=== PATIENT | female | born 1965 | race African-American/Black ===

== ENCOUNTER 2016-11-01 11:20 | Inpatient (IN) | payer MEDICARE, OTHER ==
[~2016-11-01] VITALS: Ht 157.5 cm; Wt 99.8 kg
[~2016-11-01 11:20] MED LIST: ABILIFY15 MG ORAL; ACETAZOLAMIDE250 MG ORAL; ALBUTEROL2.5 MG/3 M HHN; AMLODIPINE BESYL5 MG ORAL; ASPIRIN81 MG ORAL; ATORVASTATIN CA20 MG ORAL; BENADRYL25 MG ORAL; BISACODYL10 MG/30 M RC; DEPAKOTE ER500 MG PO; DEPAKOTE250 MG PO; GEODON40 MG ORAL; GLUCOPHAGE500 MG ORAL; HYDRALAZINE HCL10 MG ORAL; HYDRALAZINE HCL25 M1 PO; JANUVIA25 MG ORAL; LACTULOSE10 GM/153 PO; LASIX20 MG ORAL; LEVEMIR FL100 UNIT/2 SQ; MICONAZOLE NITRATE 2%; MIRALAX17 G2 ORAL; NOVOLOG100 UNITS1 SQ; OLANZAPINE10 MG ORAL; POTASSIUM CHLO10 MEQ ORAL; PREDNISONE20 MG ORAL; RANITIDINE HCL150 MG ORAL; RISPERDAL37.5 MG/2 IM; VITAMIN C500 M1 PO; ZESTRIL10 MG ORAL
[2016-11-01 11:44] VITALS: BP 131/78
[2016-11-01] MEDS ORDERED: PEPCID20 MG ORAL (12:03)
--- NOTE | 2016-11-01 14:27 | Emergency Room Report ---
History of Present Illness General Chief Complaint: General Complaint Source: PMD Present Illness HPI [id number] here with uncertain chief complaint. PMD Lelo endorsed ?UTI/sepsis. 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 Patient endorses nausea and diarrhea to me. She is ambulating around the ED eating sandwiches, speaking loudly, interacting with staff PMHx obtained from review of EMR Allergies: Coded Allergies: No Known Allergies (Unverified , 08/09/12) Patient History Past Medical History: DM, HTN, COPD, psych hx, other - Mentally delayed Past Surgical History: none Pertinent Family History: none Social History: Denies: alcohol use, drug use, smoking Now: No Immunizations: UTD Reviewed Nursing Documentation: PMH: Agreed, PSxH: Agreed Nursing Documentation-PMH Hx Cardiac Problems: Yes Hx Hypertension: Yes Hx COPD: Yes Hx Diabetes: Yes Hx Cancer: Yes - Colon CA Hx Gastrointestinal Problems: No Hx Neurological Problems: Yes - SCHIZOPHRENIA, BIPOLAR, Hx Seizures: Yes Hx Dizziness: Yes Review of Systems All Other Systems: limited - Limited d/t mental delay Physical Exam Vital Signs Date Time Temp Pulse Resp B/P Pulse Ox O2 Delivery O2 Flow Rate FiO2 11/01/16 11:29 98.1 96 20 131/78 100 Room Air Sp02 EP Interpretation: reviewed, normal General Appearance: normal inspection, well appearing, no apparent distress, alert, non-toxic, obese Head: normocephalic Eyes: bilateral eye EOMI, bilateral eye PERRL ENT: normal ENT inspection, hearing grossly normal, normal voice Neck: normal inspection, full range of motion, supple, no bony tend Respiratory: normal inspection, lungs clear, normal breath sounds, no respiratory distress, no retraction, no wheezing Cardiovascular #1: regular rate, rhythm, no edema Gastrointestinal: normal inspection, normal bowel sounds, non tender, soft, no guarding, no hernia Genitourinary: no CVA tenderness Musculoskeletal: normal inspection, back normal, normal range of motion, Kathy' s Sign negative Neurologic: normal inspection, alert, oriented x3, responsive, advertising inserter III-XII nml as tested, motor strength/tone normal, speech normal Psychiatric: normal inspection, judgement/insight normal, mood/affect normal Skin: normal inspection, normal color, no rash Lymphatic: normal inspection Medical Decision Making Diagnostic Impression: Primary Impression: Altered mental status Qualified Codes: R41.82 - Altered mental status, unspecified ER Course Altered mental status VSS. Afebrile. CXR no PNA Labs, UA are pending at time of endorsement to Dr Lind for 235pm EKG Diagnostic Results Rate: normal Rhythm: NSR ST Segments: no acute changes Rhythm Strip Diag. Results EP Interpretation: yes Rate: 94 Rhythm: NSR, no PVC's, no ectopy Chest X-Ray Diagnostic Results Chest X-Ray Diagnostic Results : Chest X-Ray Ordered: Yes # of Views/Limited/Complete: 1 View Indication: Other - Admit EP Interpretation: Yes Interpretation: no consolidation, no effusion, no pneumothorax, other - cardiomegaly Impression: No acute disease Interpreting ER Provider: Electronically signed by DR Mason Last Vital Signs Date Time Temp Pulse Resp B/P Pulse Ox O2 Delivery O2 Flow Rate FiO2 11/01/16 12:49 98.1 81 20 131/78 100 Room Air Status: improved Disposition: HOME, SELF-CARE Condition: Improved Scripts Famotidine (PEPCID) 20 Mg Tablet 20 MG ORAL DAILY for stomach pain, diarrhea for 7 Days, #14 TAB 0 Refills Prov: ROSENDA MASON M.D. 11/01/16 Referrals: IRAIS LIND (PCP) Patient Instructions: Chronic Diarrhea Additional Instructions: - Take pepcid once daily for 1 week ROSENDA MASON M.D. Nov 01, 2016 14:27
[2016-11-01] MEDS ORDERED: LORazepam Inj 2mg/ml 1ml IV PRN (14:30)
[2016-11-01] MEDS ORDERED: Miralax 17gm pkt ORAL PRN (14:30)
[2016-11-01] MEDS ORDERED: Morphine Sulfate 2mg/ml Inj IVP PRN (14:30)
[2016-11-01] MEDS ORDERED: Zolpidem 5mg tab ORAL PRN (14:30)
[2016-11-01] MEDS ORDERED: Mylanta II UD 30ml ORAL PRN (14:30)
[2016-11-01 14:38] VITALS: BP 128/76
--- NOTE | 2016-11-01 15:44 | History and Physical ---
History of Present Illness General Date patient seen: Nov 01, 2016 Reason for Hospitalization: General Complaint Present Illness HPI 51 year old female with psych disorder, hard of hearing, mentally disabled, with morbid obesity and DM brought in with cc of diarrhea, dysuria, and abdominal cramps. Allergies: Coded Allergies: No Known Allergies (Unverified , 08/09/12) Medication History Scheduled Amlodipine Besylate* (Amlodipine Besylate*), 5 MG ORAL DAILY, (Reported) Aripiprazole* (Abilify*), 30 MG ORAL DAILY, (Reported) Aspirin* (Aspirin*), 162 MG ORAL DAILY Atorvastatin Calcium* (Atorvastatin Calcium*), 20 MG ORAL BEDTIME, (Reported) Divalproex Sodium* (Depakote Er*), 500 MG PO QHS, (Reported) Divalproex Sodium* (Depakote*), 250 MG PO BEDTIME, (Reported) Famotidine (Pepcid), 20 MG ORAL DAILY Furosemide (Furosemide), 20 MG ORAL DAILY, (Reported) Hydralazine Hcl* (Hydralazine Hcl*), 10 MG ORAL TID, (Reported) Insulin Aspart (Novolog Flexpen), 20 SQ THREE TIMES A DAY, (Reported) Lisinopril* (Zestril*), 10 MG ORAL BID, (Reported) Metformin Hcl* (Glucophage*), 500 MG ORAL BID, (Reported) Olanzapine (Olanzapine), 10 MG ORAL THREE TIMES A DAY, (Reported) Potassium Chloride* (K-Dur*), 10 MEQ ORAL DAILY, (Reported) Risperidone Microspheres (Risperdal Consta), 50 MG IM [id number], (Reported) Sitagliptin* (Januvia*), 50 MG ORAL DAILY, (Reported) Ziprasidone Hcl* (Geodon*), 80 MG ORAL BID, (Reported) Scheduled PRN Polyethylene Glycol 3350* (Miralax*), 17 GM ORAL DAILYPRN PRN for Constipation Miscellaneous Medications Insulin Detemir (Levemir Flextouch), 100 UNIT SQ, (Reported) [miconazole nit 2%], (Reported) Patient History Healthcare decision maker Resuscitation status Advanced Directive on File Past Medical/Surgical History Past Medical/Surgical History: (1) Dysuria (2) Psychosis (3) Mentally disabled (4) Diarrhea Review of Systems All Other Systems: negative except mentioned in HPI Physical Exam General Appearance: WD/WN Lines, tubes and drains: peripheral HEENT: normocephalic, atraumatic Neck: non-tender, normal alignment Respiratory/Chest: chest wall non-tender, lungs clear Breasts: no masses Cardiovascular/Chest: normal peripheral pulses Abdomen: normal bowel sounds, non tender Genitourinary/Rectal: normal genital exam Extremities: normal range of motion Skin Exam: normal pigmentation Last 24 Hour Vital Signs Date Time Temp Pulse Resp B/P Pulse Ox O2 Delivery O2 Flow Rate FiO2 11/01/16 15:20 98.1 78 18 128/76 100 Room Air 11/01/16 14:38 98.1 78 18 128/76 100 Room Air 11/01/16 12:49 98.1 81 20 131/78 100 Room Air 11/01/16 11:44 98.1 81 20 131/78 100 Room Air 11/01/16 11:29 98.1 96 20 131/78 100 Room Air Height (Feet): 5 Height (Inches): 3.00 Weight (Pounds): 220 Medications Current Medications Medications (Trade) Dose Ordered Sig/Madhu Route PRN Reason Start Time Stop Time Status Last Admin Dose Admin Acetaminophen (Tylenol) 650 mg Q4H PRN ORAL fever 11/01/16 14:30 12/01/16 14:29 Al Hydroxide/Mg Hydroxide (Mylanta II) 30 ml Q6H PRN ORAL dyspepsia 11/01/16 14:30 12/01/16 14:29 Amlodipine Besylate (Norvasc) 5 mg DAILY ORAL 11/02/16 09:00 12/02/16 08:59 Aripiprazole (Abilify) 30 mg DAILY ORAL 11/02/16 09:00 12/02/16 08:59 Aspirin (ASA) 162 mg DAILY ORAL 11/02/16 09:00 12/02/16 08:59 Dextrose (Dextrose 50%) STAT PRN IV Hypoglycemia 11/01/16 14:30 12/01/16 14:29 Divalproex Sodium (Depakote ER) 500 mg QHS ORAL 11/01/16 21:00 12/01/16 20:59 Heparin Sodium (Porcine) (Heparin 5000 units/ml) 5,000 units EVERY 12 HOURS SUBQ 11/01/16 21:00 12/01/16 20:59 Hydralazine HCl (Apresoline) 10 mg TID ORAL 11/01/16 18:00 12/01/16 17:59 Insulin Aspart (NovoLOG) BEFORE MEALS AND HS SUBQ 11/01/16 16:30 12/01/16 16:29 Lisinopril (Zestril) 10 mg BID ORAL 11/01/16 18:00 12/01/16 17:59 Lorazepam (Ativan 2mg/ml 1ml) 0.5 mg Q4H PRN IV For Anxiety 11/01/16 14:30 11/08/16 14:29 Morphine Sulfate (Morphine Sulfate) 1 mg Q4H PRN IVP For Pain 11/01/16 14:30 11/08/16 14:29 Ondansetron HCl (Zofran) 4 mg Q6H PRN IVP Nausea & Vomiting 11/01/16 14:30 12/01/16 14:29 Polyethylene Glycol (Miralax) 17 gm HSPRN PRN ORAL Constipation 11/01/16 14:30 12/01/16 14:29 Sitagliptin Phosphate (Januvia) 50 mg DAILY ORAL 11/02/16 09:00 12/02/16 08:59 Zolpidem Tartrate (Ambien) 5 mg HSPRN PRN ORAL Insomnia 11/01/16 14:30 12/01/16 14:29 Assessment/Plan Problem List: (1) Diarrhea ICD Codes: R19.7 - Diarrhea, unspecified SNOMED: 20522161 (2) Dysuria ICD Codes: R30.0 - Dysuria SNOMED: 26676998 (3) Psychosis ICD Codes: F29 - Unspecified psychosis not due to a substance or known physiological condition SNOMED: 98569201 (4) Diabetes ICD Codes: E11.9 - Type 2 diabetes mellitus without complications SNOMED: 86469010 (5) Mentally disabled ICD Codes: F79 - Unspecified intellectual disabilities SNOMED: 01234628, 197706306, 273442601 Assessment/Plan stool for ova/ parasites GI evaluation sliding scale check labs psych with IRAIS Ron Nov 01, 2016 15:44
[2016-11-01 15:49] VITALS: BP 149/92
[2016-11-01 16:00] VITALS: BP 149/92
--- NOTE | 2016-11-01 16:21 | Diagnostic Imaging Report ---
Indication: SOB chest pain Technique: One view of the chest Comparison: 10/08/2015 Findings: Body habitus limits evaluation. Equivocal mild congestive changes are again demonstrated, perhaps slightly less severe than on the prior study. The heart is borderline enlarged. Impression: Equivocal mild interstitial congestion. Correlate clinically. Borderline cardiomegaly
[2016-11-01 16:40] LABS: BASOPHILS % (AUTO) 1.2 % (0.0-2.0); EOSINOPHILS % (AUTO) 0.3 % (0.0-3.0); LYMPHOCYTES % (AUTO) 16.9 % (20.0-45.0); MEAN CORPUSCULAR HEMOGLOBIN 31.1 PG (27.0-31.0); MEAN CORPUSCULAR HGB CONC 34.3 G/DL (32.0-36.0); MEAN CORPUSCULAR VOLUME 91 FL (80-99); MEAN PLATELET VOLUME 9.8 FL (6.5-10.1); MONOCYTES % (AUTO) 10.3 % (1.0-10.0); NEUTROPHILS % (AUTO) 71.2 % (45.0-75.0); PLATELET COUNT 137 K/UL (150-450); RED BLOOD COUNT 4.24 M/UL (4.20-5.40); WHITE BLOOD COUNT 9.4 K/UL (4.8-10.8)
[2016-11-01 16:57] LABS: ALANINE AMINOTRANSFERASE 12 U/L (3-33); ALBUMIN/GLOBULIN RATIO 1.3 (1.0-2.7); ANION GAP 12 (5-15); ASPARTATE AMINO TRANSFERASE 17 U/L (5-40); CALCIUM 9.6 mg/dL (8.6-10.2); CARBON DIOXIDE 29 mEQ/L (20-30); CHLORIDE 100 mEQ/L (98-107); CREATININE 1.2 mg/dL (0.5-0.9); HEMOLYSIS 8; POTASSIUM 3.8 mEQ/L (3.4-4.9); SODIUM 141 mEQ/L (135-145); TOTAL PROTEIN 6.4 g/dL (6.6-8.7); TROPONIN I < 0.30 ng/mL (<=0.30)
[2016-11-01 17:15] LABS: REFLEX LACTIC ACID YES OR NO YES
[2016-11-01] MEDS: Lisinopril 10mg tab ORAL SCH (17:45)
[2016-11-01] MEDS: HydrALAZINE 10mg Tab ORAL SCH (17:46)
[2016-11-01] MEDS: NovoLOG Insulin Flexpen SUBQ SCH ×2 (17:48→21:01)
[2016-11-01 19:03] LABS: APPEARANCE,URINE CLEAR; KETONES,URINE NEGATIVE (NEGATIVE); LEUKOCYTE ESTERASE ,URINE 2+ (NEGATIVE); NITRITE,URINE NEGATIVE (NEGATIVE); PH,URINE 6.5 (4.5-8.0); PROTEIN,URINE 4+ (NEGATIVE); UROBILINOGEN,URINE NORMAL MG/DL (0.0-1.0)
[2016-11-01] MEDS ORDERED: BACLOFEN10 MG ORAL (19:12)
[2016-11-01] MEDS ORDERED: TEMAZEPAM15 MG ORAL (19:12)
[2016-11-01] MEDS ORDERED: TOLTERODINE TART2 M1 PO (19:12)
[2016-11-01] MEDS ORDERED: RISPERIDONE3 MG ORAL (19:12)
[2016-11-01] MEDS ORDERED: KLONOPIN1 MG ORAL (19:12)
[2016-11-01] MEDS ORDERED: JANUVIA25 MG ORAL (19:12)
[2016-11-01] MEDS ORDERED: ATIVAN2 MG ORAL (19:12)
[2016-11-01] MEDS ORDERED: COLACE100 MG ORAL (19:12)
[2016-11-01] MEDS ORDERED: OMEPRAZOLE20 M2 ORAL (19:12)
[2016-11-01] MEDS ORDERED: ACETAMINOPHEN500 M7 PO (19:12)
[2016-11-01 19:18] LABS: WBC,URINE TNTC /HPF (0 - 2)
[2016-11-01 19:19] LABS: SQUAMOUS EPITHELIAL CELL,UR OCCASIONAL /LPF (NONE/OCC)
[2016-11-01] MEDS ORDERED: LEVEMIR FL100 UNIT/1 SUBQ ×2 (19:48)
[2016-11-01 19:56] VITALS: BP 155/59
--- NOTE | 2016-11-01 20:04 | Consultation ---
Consult Note Consult Note ID Dic# [id number] LEXI JARRETT M.D. Nov 01, 2016 20:04
[2016-11-01] MEDS: Heparin 5000 units/ml inj SUBQ SCH (20:59)
[2016-11-01] MEDS ORDERED: Depakote ER 500mg tab ORAL SCH (21:00)
[2016-11-01] MEDS: Atorvastatin 20mg tab ORAL SCH (21:22)
[2016-11-01] MEDS: cefTRIAXone 1 GM in D5W 55 ML IVPB SCH (21:24)
[2016-11-01] MEDS: Levemir Flexpen SUBQ SCH (21:26)
[2016-11-01] MEDS ORDERED: LORazepam 1mg tab ORAL PRN (22:00)
--- NOTE | 2016-11-01 22:25 | Consultation ---
History of Present Illness General Chief Complaint: General Complaint Present Illness HPI 51 year old female with hx schizoaffective d/o admitted for uti the pt has DD and hearing loss. recent surgery and hearing is lost. the pt is loud and anxious. perseverated and endorses delusions. Allergies: Coded Allergies: No Known Allergies (Unverified , 08/09/12) Medication History Scheduled Amlodipine Besylate* (Amlodipine Besylate*), 5 MG ORAL DAILY, (Reported) Aripiprazole* (Abilify*), 30 MG ORAL DAILY, (Reported) Aspirin* (Aspirin*), 162 MG ORAL DAILY Atorvastatin Calcium* (Atorvastatin Calcium*), 20 MG ORAL BEDTIME, (Reported) Baclofen* (Baclofen*), 10 MG ORAL THREE TIMES A DAY, (Reported) Clonazepam* (Klonopin*), 1 MG ORAL BEDTIME, (Reported) Divalproex Sodium* (Depakote Er*), 500 MG PO QHS, (Reported) Divalproex Sodium* (Depakote*), 250 MG PO BEDTIME, (Reported) Docusate Sodium* (Colace*), 100 MG ORAL DAILY, (Reported) Famotidine (Pepcid), 20 MG ORAL DAILY Furosemide (Furosemide), 20 MG ORAL DAILY, (Reported) Hydralazine Hcl* (Hydralazine Hcl*), 10 MG ORAL TID, (Reported) Insulin Aspart (Novolog Flexpen), 20 SQ THREE TIMES A DAY, (Reported) Insulin Detemir (Levemir Flexpen), 30 SUBQ DAILY, (Reported) Insulin Detemir (Levemir Flexpen), 20 SUBQ BEDTIME, (Reported) Lisinopril* (Zestril*), 10 MG ORAL BID, (Reported) Metformin Hcl* (Glucophage*), 500 MG ORAL BID, (Reported) Olanzapine (Olanzapine), 10 MG ORAL THREE TIMES A DAY, (Reported) Omeprazole (Omeprazole), 20 MG ORAL DAILY, (Reported) Potassium Chloride* (K-Dur*), 10 MEQ ORAL DAILY, (Reported) Risperidone (Risperidone), 3 MG ORAL BEDTIME, (Reported) Risperidone Microspheres (Risperdal Consta), 50 MG IM [id number], (Reported) Sitagliptin* (Januvia*), 50 MG ORAL DAILY, (Reported) Sitagliptin* (Januvia*), 100 MG ORAL DAILY, (Reported) Temazepam (Temazepam*), 15 MG ORAL BEDTIME, (Reported) Ziprasidone Hcl* (Geodon*), 80 MG ORAL BID, (Reported) Scheduled PRN Acetaminophen (Acetaminophen), 325 MG PO EVERY 8 HOURS PRN for Mild Pain/Temp > 100.5, (Reported) Lorazepam* (Ativan*), 2 MG ORAL EVERY 6 HOURS PRN for Agitation, (Reported) Polyethylene Glycol 3350* (Miralax*), 17 GM ORAL DAILYPRN PRN for Constipation Miscellaneous Medications Insulin Detemir (Levemir Flextouch), 100 UNIT SQ, (Reported) Tolterodine Tartrate (Tolterodine Tartrate ER), 2 MG PO, (Reported) [miconazole nit 2%], (Reported) Patient History History Provided By: Patient, Medical Record, PMD Healthcare decision maker Resuscitation status Full Code Advanced Directive on File No Past Medical/Surgical History Past Medical/Surgical History: (1) Dizziness (2) Chest pain of uncertain etiology (3) ACS (acute coronary syndrome) (4) Altered mental status (5) Diarrhea (6) Dysuria (7) Psychosis (8) Mentally disabled (9) Diabetes Review of Systems Psychiatric: Reports: anxiety, depressed feelings, emotional problems, prior hx Physical Exam General Appearance: alert, mild distress, agitated, obese Neurologic: alert, responsive, depressed affect Last 24 Hour Vital Signs Date Time Temp Pulse Resp B/P Pulse Ox O2 Delivery O2 Flow Rate FiO2 11/01/16 19:56 97.7 99 20 155/59 95 Room Air 11/01/16 19:55 97.7 11/01/16 17:46 185/96 11/01/16 17:45 185/96 11/01/16 16:00 97.3 102 20 149/92 92 Room Air 11/01/16 15:49 97.3 102 20 149/92 92 Room Air 11/01/16 15:20 98.1 78 18 128/76 100 Room Air 11/01/16 14:38 98.1 78 18 128/76 100 Room Air 11/01/16 12:49 98.1 81 20 131/78 100 Room Air 11/01/16 11:44 98.1 81 20 131/78 100 Room Air 11/01/16 11:29 98.1 96 20 131/78 100 Room Air Laboratory Tests Test 11/01/16 16:11 11/01/16 16:15 11/01/16 18:24 White Blood Count 9.4 K/UL (4.8-10.8) Pending Red Blood Count 4.24 M/UL (4.20-5.40) Pending Hemoglobin 13.2 G/DL (12.0-16.0) Pending Hematocrit 38.4 % (37.0-47.0) Pending Mean Corpuscular Volume 91 FL (80-99) Pending Mean Corpuscular Hemoglobin 31.1 PG (27.0-31.0) H Pending Mean Corpuscular Hemoglobin Concent 34.3 G/DL (32.0-36.0) Pending Red Cell Distribution Width 12.0 % (11.6-14.8) Pending Platelet Count 137 K/UL (150-450) L Pending Mean Platelet Volume 9.8 FL (6.5-10.1) Pending Neutrophils (%) (Auto) 71.2 % (45.0-75.0) Pending Lymphocytes (%) (Auto) 16.9 % (20.0-45.0) L Pending Monocytes (%) (Auto) 10.3 % (1.0-10.0) H Pending Eosinophils (%) (Auto) 0.3 % (0.0-3.0) Pending Basophils (%) (Auto) 1.2 % (0.0-2.0) Pending Sodium Level 141 mEQ/L (135-145) Potassium Level 3.8 mEQ/L (3.4-4.9) Chloride Level 100 mEQ/L (98-107) Carbon Dioxide Level 29 mEQ/L (20-30) Anion Gap 12 (5-15) Blood Urea Nitrogen 19 mg/dL (7-23) Creatinine 1.2 mg/dL (0.5-0.9) H Estimat Glomerular Filtration Rate 57.0 mL/min (>60) Glucose Level 369 mg/dL (74-106) H Lactic Acid Level 2.10 mmol/L (0.66-2.22) Calcium Level 9.6 mg/dL (8.6-10.2) Total Bilirubin 0.3 mg/dL (0.0-1.2) Aspartate Amino Transf (AST/SGOT) 17 U/L (5-40) Alanine Aminotransferase (ALT/SGPT) 12 U/L (3-33) Alkaline Phosphatase 65 U/L (35-104) Total Creatine Kinase 673 U/L (26-140) H Troponin I < 0.30 ng/mL (<=0.30) Total Protein 6.4 g/dL (6.6-8.7) L Albumin 3.7 g/dL (3.5-5.2) Globulin 2.7 g/dL Albumin/Globulin Ratio 1.3 (1.0-2.7) Urine Color Pale yellow Urine Appearance Clear Urine pH 6.5 (4.5-8.0) Urine Specific [place] 1.010 (1.005-1.035) Urine Protein 4+ (NEGATIVE) H Urine Glucose (UA) 4+ (NEGATIVE) H Urine Ketones Negative (NEGATIVE) Urine Occult Blood 5+ (NEGATIVE) H Urine Nitrite Negative (NEGATIVE) Urine Bilirubin Negative (NEGATIVE) Urine Urobilinogen Normal MG/DL (0.0-1.0) Urine Leukocyte Esterase 2+ (NEGATIVE) H Urine RBC 5-10 /HPF (0 - 2) H Urine WBC Tntc /HPF (0 - 2) H Urine Squamous Epithelial Cells Occasional /LPF Urine Bacteria None /HPF (NONE) Height (Feet): 5 Height (Inches): 2.00 Weight (Pounds): 220 Medications Current Medications Medications (Trade) Dose Ordered Sig/Madhu Route PRN Reason Start Time Stop Time Status Last Admin Dose Admin Acetaminophen (Tylenol) 650 mg Q4H PRN ORAL fever 11/01/16 14:30 12/01/16 14:29 Al Hydroxide/Mg Hydroxide (Mylanta II) 30 ml Q6H PRN ORAL dyspepsia 11/01/16 14:30 12/01/16 14:29 Amlodipine Besylate (Norvasc) 5 mg DAILY ORAL 11/02/16 09:00 12/02/16 08:59 Aspirin (ASA) 162 mg DAILY ORAL 11/02/16 09:00 12/02/16 08:59 Atorvastatin Calcium (Lipitor) 20 mg BEDTIME ORAL 11/01/16 21:00 12/01/16 20:59 11/01/16 21:22 Baclofen (Lioresal) 10 mg THREE TIMES A DAY ORAL 11/02/16 09:00 12/02/16 08:59 Ceftriaxone Sodium/Dextrose (Rocephin/D5W) 55 ml @ 110 mls/hr Q24H IVPB 11/01/16 20:00 11/08/16 19:59 11/01/16 21:24 Clonazepam (KlonoPIN) 1 mg HSPRN PRN ORAL anxiety at bedtime 11/02/16 20:00 11/09/16 19:59 Dextrose (Dextrose 50%) STAT PRN IV Hypoglycemia 11/01/16 14:30 12/01/16 14:29 Divalproex Sodium (Depakote ER) 250 mg QHS ORAL 11/02/16 21:00 12/02/16 20:59 Divalproex Sodium (Depakote ER) 1,000 mg QHS ORAL 11/02/16 21:00 12/02/16 20:59 Docusate Sodium (Colace) 100 mg DAILY ORAL 11/02/16 09:00 12/02/16 08:59 Heparin Sodium (Porcine) 5000 units 5,000 units EVERY 12 HOURS SUBQ 11/01/16 21:00 12/01/16 20:59 11/01/16 20:59 Hydralazine HCl (Apresoline) 10 mg TID ORAL 11/01/16 18:00 12/01/16 17:59 11/01/16 17:46 Insulin Aspart (NovoLOG) BEFORE MEALS AND HS SUBQ 11/01/16 16:30 12/01/16 16:29 11/01/16 21:01 Insulin Detemir (Levemir) 20 units BEDTIME SUBQ 11/01/16 21:00 12/01/16 20:59 11/01/16 21:26 Insulin Detemir 30 units 30 units DAILY SUBQ 11/02/16 09:00 12/02/16 08:59 Lisinopril (Zestril) 10 mg BID ORAL 11/01/16 18:00 12/01/16 17:59 11/01/16 17:45 Lorazepam (Ativan) 2 mg Q6H PRN ORAL For Anxiety 11/01/16 22:00 11/08/16 21:59 Metronidazole (Flagyl) 100 ml @ 100 mls/hr Q8HR IVPB 11/01/16 22:00 11/08/16 21:59 Morphine Sulfate (Morphine Sulfate) 1 mg Q4H PRN IVP For Pain 11/01/16 14:30 11/08/16 14:29 Ondansetron HCl (Zofran) 4 mg Q6H PRN IVP Nausea & Vomiting 11/01/16 14:30 12/01/16 14:29 Pantoprazole (Protonix) 40 mg DAILY ORAL 11/01/16 21:00 12/01/16 20:59 11/01/16 21:22 Polyethylene Glycol (Miralax) 17 gm HSPRN PRN ORAL Constipation 11/01/16 14:30 12/01/16 14:29 Risperidone (RisperDAL) 6 mg QHS ORAL 11/02/16 21:00 12/02/16 20:59 Sitagliptin Phosphate (Januvia) 50 mg DAILY ORAL 11/02/16 09:00 12/02/16 08:59 Temazepam (Restoril) 15 mg HSPRN PRN ORAL Insomnia 11/01/16 21:00 11/08/16 20:59 Tolterodine Tartrate (Detrol) 1 mg BID ORAL 11/02/16 09:00 12/02/16 08:59 Assessment/Plan Status: stable Assessment/Plan Depakote er 1250mg qhs risperdal mg qhs klonopin 1mg qhs prn ativan prn Rudy Quiroz M.D. Nov 01, 2016 22:25
[2016-11-02] VITALS: BP 145/87
[2016-11-02] MEDS: metroNIDAZOLE 500mg 100 ML IVPB SCH ×4 (02:18→21:54)
[2016-11-02 04:00] VITALS: BP 152/88
[2016-11-02] MEDS: NovoLOG Insulin Flexpen SUBQ SCH ×6 (06:39→21:00)
--- NOTE | 2016-11-02 07:15 | Consultation ---
DATE OF CONSULTATION: INFECTIOUS DISEASE CONSULTATION CONSULTING PHYSICIAN: Navid Bobby M.D. REFERRING PHYSICIAN: Rush Lind M.D. REASON FOR CONSULTATION: Evaluation of the patient for possible sepsis, urinary tract infection, antibiotic management. HISTORY OF PRESENT ILLNESS: The patient is a 51-year-old female with multiple medical problems as listed below who was admitted to this medical center with and also the patient has a history of having dysuria, abdominal cramp and diarrhea. Infectious Disease consultation has been requested for evaluation of the patient's antibiotic management. The patient is a very poor historian and much of the information is gathered through chart and speaking to staff. PAST MEDICAL HISTORY: 1. History of psychosis. 2. History of mentally challenged. 3. History of cochlear implant. 4. History of seizure disorder. 5. Hypertension. 6. COPD. 7. Diabetes. MEDICATIONS: IV Rocephin. ALLERGIES: No known drug allergies. SOCIAL HISTORY: No history of alcohol or drug abuse. FAMILY HISTORY: Noncontributory. REVIEW OF SYSTEMS: Unobtainable. The patient is a very poor historian. PHYSICAL EXAMINATION: VITAL SIGNS: Temperature 97.7 degrees, blood pressure 155/59, pulse 56, and respiratory rate 18. HEENT: No pale conjunctivae. No icterus. NECK: No lymphadenopathy. CHEST: Clear. HEART: S1 and S2. ABDOMEN: Obese and nontender. EXTREMITIES: No cyanosis. LABORATORY AND DIAGNOSTIC DATA: White blood cell 9.4, hemoglobin 13.2 and platelets 137,000. Urinalysis, too numerous to count white blood cells, BUN 19 and creatinine 1.2. ALT, AST and alkaline phosphatase is unremarkable. Chest x-ray, mild interstitial congestion. ASSESSMENT: The patient is a 51-year-old female with: 1. Possible sepsis. 2. Probable urinary tract infection/pyuria. 3. Diarrhea, rule out Clostridium difficile, enteric pathogens. PLAN: 1. We will start the patient on IV Rocephin and Flagyl. 2. Monitor CBC. 3. Monitor BMP. 4. Monitor cultures, blood/stool/urine culture. 5. Stool for C. difficile. 6. Based on the patient's clinical course and labs, we will do further recommendations. Thank you, Dr. Lind, for allowing me to participate in the care of this patient. I will follow the patient with you during this hospitalization. Navid Bobby M.D. DR: JYOTSNA JOB#: [id number] CC:
--- NOTE | 2016-11-02 07:45 | Consultation ---
DATE OF CONSULTATION: 11/02/2016 ENDOCRINE CONSULTATION CONSULTING PHYSICIAN: Darshan Rodriguez M.D. REFERRING PHYSICIAN: Rush Lind M.D. REASON FOR CONSULTATION: Diabetes management. HISTORY OF PRESENT ILLNESS: The patient is a 51-year-old female with history of psychiatric disorder and had been feeling mentally disabled with morbid obesity, brought into the emergency department with multiple complaints. Her blood sugar is elevated. The patient is on high dose insulin as an outpatient. Therefore Endocrinology was consulted. PAST MEDICAL HISTORY: 1. Diabetes. 2. Obesity. 3. Hypertension. 4. Chronic obstructive pulmonary disease. 5. Psychiatric illness. PAST SURGICAL HISTORY: None. MEDICATIONS: Reviewed and reconciled. SOCIAL HISTORY: No smoking, alcohol, or drug use. FAMILY HISTORY: Noncontributory. REVIEW OF SYSTEMS: Difficult to obtain. PHYSICAL EXAMINATION: VITAL SIGNS: Blood pressure is 152/80, pulse of 100, temperature 99, and respiratory rate of 20. HEENT: Pupils are equal and reactive to light. NECK: No JVD. HEART: Regular. LUNGS: Clear. ABDOMEN: Positive bowel sounds. Soft. EXTREMITIES: Positive for edema. LABORATORY VALUES: Sodium 141, potassium 3.8, chloride 100, bicarb 29, BUN 19, creatinine 1.2, and glucose of 369. WBC 9, hemoglobin 13, hematocrit 38, and platelets of 137,000. DIAGNOSES: 1. Generalized weakness. 2. Abdominal pain. 3. Diabetes, out of control. PLAN: 1. Continue Levemir 30 units in the morning and 20 units in the evening. 2. Add NovoLog 9 units before meals t.i.d. 3. Continue Januvia 50 mg daily. 4. Add metformin 500 mg t.i.d. 5. Continue NovoLog sliding scale. 6. Further adjustment according to her blood glucose values. I will follow the patient during the hospital stay. Thank you, Dr. Lind, for the courtesy of this consultation. Darshan Rodriguez M.D. DR: TAMRA/GINNY JOB#: [id number] CC: [email or web address]
[2016-11-02 08:00] VITALS: BP 147/82
[2016-11-02 08:01] LABS: ALANINE AMINOTRANSFERASE 11 U/L (3-33); ALBUMIN/GLOBULIN RATIO 1.1 (1.0-2.7); ANION GAP 11 (5-15); ASPARTATE AMINO TRANSFERASE 13 U/L (5-40); CALCIUM 9.5 mg/dL (8.6-10.2); CARBON DIOXIDE 28 mEQ/L (20-30); CHLORIDE 107 mEQ/L (98-107); CHOLESTEROL 184 mg/dL (< 200); CHOLESTEROL/HDL RATIO 5.3 (3.3-4.4); CREATININE 0.9 mg/dL (0.5-0.9); GLOMERULAR FILTRATION RATE > 60 mL/min (>60); HEMOLYSIS 2; LDL CHOLESTEROL (CALC.) 125 mg/dL (60-99); POTASSIUM 3.8 mEQ/L (3.4-4.9); SODIUM 146 mEQ/L (135-145); TOTAL PROTEIN 6.8 g/dL (6.6-8.7)
[2016-11-02] MEDS ORDERED: Levemir Flexpen SUBQ SCH (09:00)
[2016-11-02] MEDS: Heparin 5000 units/ml inj SUBQ SCH ×2 (09:00→21:00)
[2016-11-02] MEDS ORDERED: Docusate 100mg cap ORAL SCH (09:00)
[2016-11-02] MEDS: Aspirin Baby 81mg ORAL SCH (09:31)
[2016-11-02] MEDS: sitaGLIPtin 50mg tab ORAL SCH (09:31)
[2016-11-02] MEDS: Lisinopril 10mg tab ORAL SCH ×2 (09:31→17:34)
[2016-11-02] MEDS: HydrALAZINE 10mg Tab ORAL SCH ×3 (09:32→17:35)
[2016-11-02] MEDS: Tolterodine 2mg tab ORAL SCH ×2 (09:32→17:38)
--- NOTE | 2016-11-02 10:06 | Infectious Diseases Prog Note ---
Assessment/Plan Assessment/Plan ASSESSMENT: The patient is a 51-year-old female with: ? sepsis Probable urinary tract infection/pyuria Diarrhea, ? no BM in hospital may need to ro rule out Clostridium difficile, enteric pathogens History of psychosis History of mentally challenged History of cochlear implant History of seizure disorder Hypertension COPD Diabetes PLAN: patient on IV Rocephin and Flagyl d# 2 Monitor CBC. Monitor BMP. Monitor cultures, blood/stool/urine culture Stool for C. difficile Subjective Constitutional: Denies: anorexia, chills, drenching sweats, fatigue, fever, no symptoms, other Allergies: Coded Allergies: No Known Allergies (Unverified , 08/09/12) Objective Vital Signs Last 24 Hour Vital Signs Date Time Temp Pulse Resp B/P Pulse Ox O2 Delivery O2 Flow Rate FiO2 11/02/16 09:32 147/82 11/02/16 09:31 147/82 11/02/16 09:31 100 147/82 11/02/16 08:00 97.7 100 20 147/82 95 Room Air 11/02/16 06:35 98.6 11/02/16 04:00 99.0 100 20 152/88 93 Room Air 11/02/16 00:00 97.9 89 18 145/87 97 Room Air 11/01/16 19:56 97.7 99 20 155/59 95 Room Air 11/01/16 19:55 97.7 11/01/16 17:46 185/96 11/01/16 17:45 185/96 11/01/16 16:00 97.3 102 20 149/92 92 Room Air 11/01/16 15:49 97.3 102 20 149/92 92 Room Air 11/01/16 15:20 98.1 78 18 128/76 100 Room Air 11/01/16 14:38 98.1 78 18 128/76 100 Room Air 11/01/16 12:49 98.1 81 20 131/78 100 Room Air 11/01/16 11:44 98.1 81 20 131/78 100 Room Air 11/01/16 11:29 98.1 96 20 131/78 100 Room Air Height (Feet): 5 Height (Inches): 2.00 Weight (Pounds): 220 HEENT: anicteric Respiratory/Chest: no respiratory distress Cardiovascular: regular rhythm Abdomen: no organomegaly Microbiology Date/Time Source Procedure Growth Status 11/01/16 18:24 Urine,Clean Catch Urine Culture - Preliminary Resulted Laboratory Tests Test 11/01/16 16:11 11/01/16 16:15 11/01/16 18:24 11/02/16 06:25 White Blood Count 9.4 K/UL (4.8-10.8) Red Blood Count 4.24 M/UL (4.20-5.40) Hemoglobin 13.2 G/DL (12.0-16.0) Hematocrit 38.4 % (37.0-47.0) Mean Corpuscular Volume 91 FL (80-99) Mean Corpuscular Hemoglobin 31.1 PG (27.0-31.0) H Mean Corpuscular Hemoglobin Concent 34.3 G/DL (32.0-36.0) Red Cell Distribution Width 12.0 % (11.6-14.8) Platelet Count 137 K/UL (150-450) L Mean Platelet Volume 9.8 FL (6.5-10.1) Neutrophils (%) (Auto) 71.2 % (45.0-75.0) Lymphocytes (%) (Auto) 16.9 % (20.0-45.0) L Monocytes (%) (Auto) 10.3 % (1.0-10.0) H Eosinophils (%) (Auto) 0.3 % (0.0-3.0) Basophils (%) (Auto) 1.2 % (0.0-2.0) Sodium Level 141 mEQ/L (135-145) 146 mEQ/L (135-145) H Potassium Level 3.8 mEQ/L (3.4-4.9) 3.8 mEQ/L (3.4-4.9) Chloride Level 100 mEQ/L (98-107) 107 mEQ/L (98-107) Carbon Dioxide Level 29 mEQ/L (20-30) 28 mEQ/L (20-30) Anion Gap 12 (5-15) 11 (5-15) Blood Urea Nitrogen 19 mg/dL (7-23) 17 mg/dL (7-23) Creatinine 1.2 mg/dL (0.5-0.9) H 0.9 mg/dL (0.5-0.9) Estimat Glomerular Filtration Rate 57.0 mL/min (>60) > 60 mL/min (>60) Glucose Level 369 mg/dL (74-106) H 264 mg/dL (74-106) #H Lactic Acid Level 2.10 mmol/L (0.66-2.22) Calcium Level 9.6 mg/dL (8.6-10.2) 9.5 mg/dL (8.6-10.2) Total Bilirubin 0.3 mg/dL (0.0-1.2) 0.4 mg/dL (0.0-1.2) Aspartate Amino Transf (AST/SGOT) 17 U/L (5-40) 13 U/L (5-40) Alanine Aminotransferase (ALT/SGPT) 12 U/L (3-33) 11 U/L (3-33) Alkaline Phosphatase 65 U/L (35-104) 56 U/L (35-104) Total Creatine Kinase 673 U/L (26-140) H Troponin I < 0.30 ng/mL (<=0.30) Total Protein 6.4 g/dL (6.6-8.7) L 6.8 g/dL (6.6-8.7) Albumin 3.7 g/dL (3.5-5.2) 3.6 g/dL (3.5-5.2) Globulin 2.7 g/dL 3.2 g/dL Albumin/Globulin Ratio 1.3 (1.0-2.7) 1.1 (1.0-2.7) Urine Color Pale yellow Urine Appearance Clear Urine pH 6.5 (4.5-8.0) Urine Specific [place] 1.010 (1.005-1.035) Urine Protein 4+ (NEGATIVE) H Urine Glucose (UA) 4+ (NEGATIVE) H Urine Ketones Negative (NEGATIVE) Urine Occult Blood 5+ (NEGATIVE) H Urine Nitrite Negative (NEGATIVE) Urine Bilirubin Negative (NEGATIVE) Urine Urobilinogen Normal MG/DL (0.0-1.0) Urine Leukocyte Esterase 2+ (NEGATIVE) H Urine RBC 5-10 /HPF (0 - 2) H Urine WBC Tntc /HPF (0 - 2) H Urine Squamous Epithelial Cells Occasional /LPF Urine Bacteria None /HPF (NONE) Triglycerides Level 119 mg/dL (< 150) Cholesterol Level 184 mg/dL (< 200) LDL Cholesterol 125 mg/dL (60-99) H HDL Cholesterol 35 mg/dL (> 60) Cholesterol/HDL Ratio 5.3 (3.3-4.4) H Current Medications Medications (Trade) Dose Ordered Sig/Madhu Route PRN Reason Start Time Stop Time Status Last Admin Dose Admin Acetaminophen (Tylenol) 650 mg Q4H PRN ORAL fever 11/01/16 14:30 12/01/16 14:29 Al Hydroxide/Mg Hydroxide (Mylanta II) 30 ml Q6H PRN ORAL dyspepsia 11/01/16 14:30 12/01/16 14:29 Amlodipine Besylate (Norvasc) 5 mg DAILY ORAL 11/02/16 09:00 12/02/16 08:59 11/02/16 09:31 Aspirin (ASA) 162 mg DAILY ORAL 11/02/16 09:00 12/02/16 08:59 11/02/16 09:31 Atorvastatin Calcium (Lipitor) 20 mg BEDTIME ORAL 11/01/16 21:00 12/01/16 20:59 11/01/16 21:22 Baclofen (Lioresal) 10 mg THREE TIMES A DAY ORAL 11/02/16 09:00 12/02/16 08:59 11/02/16 09:41 Ceftriaxone Sodium/Dextrose (Rocephin/D5W) 55 ml @ 110 mls/hr Q24H IVPB 11/01/16 20:00 11/08/16 19:59 11/01/16 21:24 Clonazepam (KlonoPIN) 1 mg HSPRN PRN ORAL anxiety at bedtime 11/02/16 20:00 11/09/16 19:59 Dextrose (Dextrose 50%) STAT PRN IV Hypoglycemia 11/01/16 14:30 12/01/16 14:29 Divalproex Sodium (Depakote ER) 250 mg QHS ORAL 11/02/16 21:00 12/02/16 20:59 Divalproex Sodium (Depakote ER) 1,000 mg QHS ORAL 11/02/16 21:00 12/02/16 20:59 Docusate Sodium (Colace) 100 mg DAILY ORAL 11/02/16 09:00 12/02/16 08:59 11/02/16 09:31 Heparin Sodium (Porcine) 5000 units 5,000 units EVERY 12 HOURS SUBQ 11/01/16 21:00 12/01/16 20:59 11/01/16 20:59 Hydralazine HCl (Apresoline) 10 mg TID ORAL 11/01/16 18:00 12/01/16 17:59 11/02/16 09:32 Insulin Aspart (NovoLOG) BEFORE MEALS AND HS SUBQ 11/01/16 16:30 12/01/16 16:29 11/02/16 06:39 Insulin Aspart (NovoLOG) 9 units NOVOTIAC SUBQ 11/02/16 11:50 12/02/16 11:49 Insulin Detemir (Levemir) 20 units BEDTIME SUBQ 11/01/16 21:00 12/01/16 20:59 11/01/16 21:26 Insulin Detemir 30 units 30 units DAILY SUBQ 11/02/16 09:00 12/02/16 08:59 11/02/16 09:33 Lisinopril (Zestril) 10 mg BID ORAL 11/01/16 18:00 12/01/16 17:59 11/02/16 09:31 Lorazepam (Ativan) 2 mg Q6H PRN ORAL For Anxiety 11/01/16 22:00 11/08/16 21:59 Metformin HCl (Glucophage) 500 mg TIAC ORAL 11/02/16 11:30 12/02/16 11:29 Metronidazole (Flagyl) 100 ml @ 100 mls/hr Q8HR IVPB 11/01/16 22:00 11/08/16 21:59 11/02/16 06:36 Morphine Sulfate (Morphine Sulfate) 1 mg Q4H PRN IVP For Pain 11/01/16 14:30 11/08/16 14:29 Ondansetron HCl (Zofran) 4 mg Q6H PRN IVP Nausea & Vomiting 11/01/16 14:30 12/01/16 14:29 Pantoprazole (Protonix) 40 mg DAILY ORAL 11/01/16 21:00 12/01/16 20:59 11/02/16 09:31 Polyethylene Glycol (Miralax) 17 gm HSPRN PRN ORAL Constipation 11/01/16 14:30 12/01/16 14:29 Risperidone (RisperDAL) 6 mg QHS ORAL 11/02/16 21:00 12/02/16 20:59 Sitagliptin Phosphate (Januvia) 50 mg DAILY ORAL 11/02/16 09:00 12/02/16 08:59 11/02/16 09:31 Temazepam (Restoril) 15 mg HSPRN PRN ORAL Insomnia 11/01/16 21:00 11/08/16 20:59 Tolterodine Tartrate (Detrol) 1 mg BID ORAL 11/02/16 09:00 12/02/16 08:59 11/02/16 09:32 LEXI JARRETT M.D. Nov 02, 2016 10:06
[2016-11-02] MEDS ORDERED: Tubing IV Secondary IV ONE (10:49)
[2016-11-02] MEDS ORDERED: NS 275ml ONE (10:49)
[2016-11-02 12:00] VITALS: BP 143/64
[2016-11-02] MEDS: metFORMIN 500mg tab ORAL SCH ×2 (12:31→17:34)
--- NOTE | 2016-11-02 12:31 | Cardiology Report ---
APPROVED REPORT EKG Measurement Heart [id number] TN [id number] [id number] Sinus rhythm with premature ventricular complexes or fusion complexes Cannot rule out Anterior infarct, age undetermined Abnormal ECG
[2016-11-02 16:00] VITALS: BP 149/102
--- NOTE | 2016-11-02 16:08 | GI Initial Consult Note ---
History of Present Illness General Date patient seen: Nov 02, 2016 Time patient seen: 12:00 Reason for Hospitalization: General Complaint Referring physician: IRAIS IRAHETA Reason for Consultation: NAUSEA Present Illness HPI [id number] here with uncertain chief complaint. PMD Lelo endorsed ?UTI/sepsis. Patient told chargeback analyst she is having chest pain. Patient endorses nausea and diarrhea to me. She is ambulating around the ED eating sandwiches, speaking loudly, interacting with staff PMHx obtained from review of EMR GI Consult. HPI as noted above. GI consulted for Nausea only. Pt seen on floor, awake A&O with sitter at bedside hx of schizophrenia and bipolar disease. Pt states her nausea has improved. Denies any abdominal pain. No reports of diarrhea. C/o of no BM for a few days. Unknown history of endoscopic procedures. Patient wishes to speak to a case aide regarding the facility she currently resides. Home Meds Active Scripts Famotidine (PEPCID) 20 Mg Tablet, 20 MG ORAL DAILY for stomach pain, diarrhea for 7 Days, #14 TAB 0 Refills Prov:ROSENDA MASON M.D. 11/01/16 Polyethylene Glycol 3350* (MIRALAX*) 17 Gm Powd.pack, 17 GM ORAL DAILYPRN Y for Constipation, #30 PACK Prov:Hailey Mills NP (Vanchtein) 10/10/15 Aspirin* (ASPIRIN*) 81 Mg Tab.chew, 162 MG ORAL DAILY, #30 TAB Prov:Hailey Mills NP (Vanchtein) 10/10/15 Reported Medications Insulin Detemir (LEVEMIR FLEXPEN) 100 Unit/1 Ml Insuln.pen, 20 SUBQ BEDTIME, # 300 UNITS 0 Refills 11/01/16 Insulin Detemir (LEVEMIR FLEXPEN) 100 Unit/1 Ml Insuln.pen, 30 SUBQ DAILY, #300 UNITS 0 Refills 11/01/16 Omeprazole (OMEPRAZOLE) 20 Mg Capsule.dr, 20 MG ORAL DAILY, CAP 11/01/16 Acetaminophen (ACETAMINOPHEN) 500 Mg Capsule, 325 MG PO EVERY 8 HOURS Y for Mild Pain/Temp > 100.5, CAP 11/01/16 Clonazepam* (KLONOPIN*) 1 Mg Tablet, 1 MG ORAL BEDTIME, #15 TAB 0 Refills 11/01/16 Tolterodine Tartrate (Tolterodine Tartrate ER) 2 Mg Cap.er.24h, 2 MG PO, CAP 11/01/16 Risperidone (RISPERIDONE) 3 Mg Tablet, 3 MG ORAL BEDTIME, TAB 0 Refills 11/01/16 Sitagliptin* (JANUVIA*) 25 Mg Tablet, 100 MG ORAL DAILY, TAB 11/01/16 Temazepam (TEMAZEPAM*) 15 Mg Capsule, 15 MG ORAL BEDTIME, #30 CAP 0 Refills 11/01/16 Lorazepam* (ATIVAN*) 2 Mg Tablet, 2 MG ORAL EVERY 6 HOURS Y for Agitation, TAB 11/01/16 Docusate Sodium* (COLACE*) 100 Mg Capsule, 100 MG ORAL DAILY, CAP 11/01/16 Baclofen* (BACLOFEN*) 10 Mg Tablet, 10 MG ORAL THREE TIMES A DAY, TAB 11/01/16 Insulin Detemir (Levemir Flextouch) 100 Unit/1 Ml Insuln.pen, 100 UNIT SQ, EA 10/08/15 [miconazole nit 2%] No Conflict Check 10/08/15 Sitagliptin* (JANUVIA*) 25 Mg Tablet, 50 MG ORAL DAILY, TAB 10/08/15 Divalproex Sodium* (DEPAKOTE*) 250 Mg Tablet.dr, 250 MG PO BEDTIME, TAB 10/08/15 Amlodipine Besylate* (AMLODIPINE BESYLATE*) 5 Mg Tablet, 5 MG ORAL DAILY, TAB 10/08/15 Atorvastatin Calcium* (ATORVASTATIN CALCIUM*) 20 Mg Tablet, 20 MG ORAL BEDTIME, TAB 10/08/15 Olanzapine (OLANZAPINE) 10 Mg Tablet, 10 MG ORAL THREE TIMES A DAY, #30 TAB 0 Refills 10/05/15 Insulin Aspart (Novolog Flexpen) 100 Unit/1 Ml Insuln.pen, 20 SQ THREE TIMES A DAY 10/05/15 Divalproex Sodium* (DEPAKOTE ER*) 500 Mg Tab.er.24h, 500 MG PO QHS, #60 TAB 08/09/12 Ziprasidone Hcl* (GEODON*) 40 Mg Capsule, 80 MG ORAL BID, #10 CAP 08/09/12 Aripiprazole* (ABILIFY*) 15 Mg Tablet, 30 MG ORAL DAILY, #30 TAB 08/09/12 Risperidone Microspheres (Risperdal Consta) 37.5 Mg/2 Ml Inj, 50 MG IM [id number] 08/09/12 Furosemide (Furosemide) 20 Mg Vial, 20 MG ORAL DAILY, #10 TAB 08/09/12 Lisinopril* (ZESTRIL*) 10 Mg Tablet, 10 MG ORAL BID, #10 TAB 08/09/12 Metformin Hcl* (GLUCOPHAGE*) 500 Mg Tablet, 500 MG ORAL BID, #20 TAB 08/09/12 Potassium Chloride* (K-DUR*) 10 Meq Capsule.er, 10 MEQ ORAL DAILY, #7 TAB 08/09/12 Hydralazine Hcl* (HYDRALAZINE HCL*) 10 Mg Tablet, 10 MG ORAL TID 08/09/12 Med list reviewed/reconciled: Yes Allergies: Coded Allergies: No Known Allergies (Unverified , 08/09/12) Patient History Limited by: medical condition History Provided By: Patient, Medical Record PMH Narrative Past Medical History: DM, HTN, COPD, psych hx, other - Mentally delayed Past Surgical History: none Pertinent Family History: none Social History: Denies: alcohol use, drug use, smoking Now: No Immunizations: UTD Reviewed Nursing Documentation: PMH: Agreed, PSxH: Agreed Nursing Documentation-PMH Hx Cardiac Problems: Yes Hx Hypertension: Yes Hx COPD: Yes Hx Diabetes: Yes Hx Cancer: Yes - Colon CA Hx Gastrointestinal Problems: No Hx Neurological Problems: Yes - SCHIZOPHRENIA, BIPOLAR, Hx Seizures: Yes Hx Dizziness: Yes Social History: Denies: alcohol use, drug use, other, smoking Review of Systems All Other Systems: negative except mentioned in HPI Physical Exam Vital Signs Date Time Temp Pulse Resp B/P Pulse Ox O2 Delivery O2 Flow Rate FiO2 11/01/16 11:29 98.1 96 20 131/78 100 Room Air Sp02 EP Interpretation: reviewed Labs Laboratory Tests Test 11/01/16 16:11 11/01/16 16:15 11/01/16 18:24 11/02/16 06:25 White Blood Count 9.4 K/UL (4.8-10.8) Red Blood Count 4.24 M/UL (4.20-5.40) Hemoglobin 13.2 G/DL (12.0-16.0) Hematocrit 38.4 % (37.0-47.0) Mean Corpuscular Volume 91 FL (80-99) Mean Corpuscular Hemoglobin 31.1 PG (27.0-31.0) H Mean Corpuscular Hemoglobin Concent 34.3 G/DL (32.0-36.0) Red Cell Distribution Width 12.0 % (11.6-14.8) Platelet Count 137 K/UL (150-450) L Mean Platelet Volume 9.8 FL (6.5-10.1) Neutrophils (%) (Auto) 71.2 % (45.0-75.0) Lymphocytes (%) (Auto) 16.9 % (20.0-45.0) L Monocytes (%) (Auto) 10.3 % (1.0-10.0) H Eosinophils (%) (Auto) 0.3 % (0.0-3.0) Basophils (%) (Auto) 1.2 % (0.0-2.0) Sodium Level 141 mEQ/L (135-145) 146 mEQ/L (135-145) H Potassium Level 3.8 mEQ/L (3.4-4.9) 3.8 mEQ/L (3.4-4.9) Chloride Level 100 mEQ/L (98-107) 107 mEQ/L (98-107) Carbon Dioxide Level 29 mEQ/L (20-30) 28 mEQ/L (20-30) Anion Gap 12 (5-15) 11 (5-15) Blood Urea Nitrogen 19 mg/dL (7-23) 17 mg/dL (7-23) Creatinine 1.2 mg/dL (0.5-0.9) H 0.9 mg/dL (0.5-0.9) Estimat Glomerular Filtration Rate 57.0 mL/min (>60) > 60 mL/min (>60) Glucose Level 369 mg/dL (74-106) H 264 mg/dL (74-106) #H Lactic Acid Level 2.10 mmol/L (0.66-2.22) Calcium Level 9.6 mg/dL (8.6-10.2) 9.5 mg/dL (8.6-10.2) Total Bilirubin 0.3 mg/dL (0.0-1.2) 0.4 mg/dL (0.0-1.2) Aspartate Amino Transf (AST/SGOT) 17 U/L (5-40) 13 U/L (5-40) Alanine Aminotransferase (ALT/SGPT) 12 U/L (3-33) 11 U/L (3-33) Alkaline Phosphatase 65 U/L (35-104) 56 U/L (35-104) Total Creatine Kinase 673 U/L (26-140) H Troponin I < 0.30 ng/mL (<=0.30) Total Protein 6.4 g/dL (6.6-8.7) L 6.8 g/dL (6.6-8.7) Albumin 3.7 g/dL (3.5-5.2) 3.6 g/dL (3.5-5.2) Globulin 2.7 g/dL 3.2 g/dL Albumin/Globulin Ratio 1.3 (1.0-2.7) 1.1 (1.0-2.7) Urine Color Pale yellow Urine Appearance Clear Urine pH 6.5 (4.5-8.0) Urine Specific [place] 1.010 (1.005-1.035) Urine Protein 4+ (NEGATIVE) H Urine Glucose (UA) 4+ (NEGATIVE) H Urine Ketones Negative (NEGATIVE) Urine Occult Blood 5+ (NEGATIVE) H Urine Nitrite Negative (NEGATIVE) Urine Bilirubin Negative (NEGATIVE) Urine Urobilinogen Normal MG/DL (0.0-1.0) Urine Leukocyte Esterase 2+ (NEGATIVE) H Urine RBC 5-10 /HPF (0 - 2) H Urine WBC Tntc /HPF (0 - 2) H Urine Squamous Epithelial Cells Occasional /LPF Urine Bacteria None /HPF (NONE) Triglycerides Level 119 mg/dL (< 150) Cholesterol Level 184 mg/dL (< 200) LDL Cholesterol 125 mg/dL (60-99) H HDL Cholesterol 35 mg/dL (> 60) Cholesterol/HDL Ratio 5.3 (3.3-4.4) H General Appearance: well appearing, no apparent distress, alert, obese Head: normocephalic EENT: PERRL/EOMI, normal ENT inspection Neck: full range of motion, supple Respiratory: lungs clear, normal breath sounds Cardiovascular: normal rate Gastrointestinal: normal inspection, non tender, soft, normal bowel sounds Current Medications Current Medications Medications (Trade) Dose Ordered Sig/Madhu Route PRN Reason Start Time Stop Time Status Last Admin Dose Admin Acetaminophen (Tylenol) 650 mg Q4H PRN ORAL fever 11/01/16 14:30 12/01/16 14:29 Al Hydroxide/Mg Hydroxide (Mylanta II) 30 ml Q6H PRN ORAL dyspepsia 11/01/16 14:30 12/01/16 14:29 Amlodipine Besylate (Norvasc) 5 mg DAILY ORAL 11/02/16 09:00 12/02/16 08:59 11/02/16 09:31 Aspirin (ASA) 162 mg DAILY ORAL 11/02/16 09:00 12/02/16 08:59 11/02/16 09:31 Atorvastatin Calcium (Lipitor) 20 mg BEDTIME ORAL 11/01/16 21:00 12/01/16 20:59 11/01/16 21:22 Baclofen (Lioresal) 10 mg THREE TIMES A DAY ORAL 11/02/16 09:00 12/02/16 08:59 11/02/16 12:31 Ceftriaxone Sodium/Dextrose (Rocephin/D5W) 55 ml @ 110 mls/hr Q24H IVPB 11/01/16 20:00 11/08/16 19:59 11/01/16 21:24 Clonazepam (KlonoPIN) 1 mg HSPRN PRN ORAL anxiety at bedtime 11/02/16 20:00 11/09/16 19:59 Dextrose (Dextrose 50%) STAT PRN IV Hypoglycemia 11/01/16 14:30 12/01/16 14:29 Divalproex Sodium (Depakote ER) 250 mg QHS ORAL 11/02/16 21:00 12/02/16 20:59 Divalproex Sodium (Depakote ER) 1,000 mg QHS ORAL 11/02/16 21:00 12/02/16 20:59 Docusate Sodium (Colace) 100 mg DAILY ORAL 11/02/16 09:00 12/02/16 08:59 11/02/16 09:31 Heparin Sodium (Porcine) 5000 units 5,000 units EVERY 12 HOURS SUBQ 11/01/16 21:00 12/01/16 20:59 11/01/16 20:59 Hydralazine HCl (Apresoline) 10 mg TID ORAL 11/01/16 18:00 12/01/16 17:59 11/02/16 12:31 Insulin Aspart (NovoLOG) BEFORE MEALS AND HS SUBQ 11/01/16 16:30 12/01/16 16:29 11/02/16 12:34 Insulin Aspart (NovoLOG) 9 units NOVOTIAC SUBQ 11/02/16 11:50 12/02/16 11:49 11/02/16 12:34 Insulin Detemir (Levemir) 20 units BEDTIME SUBQ 11/01/16 21:00 12/01/16 20:59 11/01/16 21:26 Insulin Detemir 30 units 30 units DAILY SUBQ 11/02/16 09:00 12/02/16 08:59 11/02/16 09:33 Lisinopril (Zestril) 10 mg BID ORAL 11/01/16 18:00 12/01/16 17:59 11/02/16 09:31 Lorazepam (Ativan) 2 mg Q6H PRN ORAL For Anxiety 11/01/16 22:00 11/08/16 21:59 Metformin HCl (Glucophage) 500 mg TIAC ORAL 11/02/16 11:30 12/02/16 11:29 11/02/16 12:31 Metronidazole (Flagyl) 100 ml @ 100 mls/hr Q8HR IVPB 11/01/16 22:00 11/08/16 21:59 11/02/16 13:56 Morphine Sulfate (Morphine Sulfate) 1 mg Q4H PRN IVP For Pain 11/01/16 14:30 11/08/16 14:29 Ondansetron HCl (Zofran) 4 mg Q6H PRN IVP Nausea & Vomiting 11/01/16 14:30 12/01/16 14:29 Pantoprazole (Protonix) 40 mg DAILY ORAL 11/01/16 21:00 12/01/16 20:59 11/02/16 09:31 Polyethylene Glycol (Miralax) 17 gm HSPRN PRN ORAL Constipation 11/01/16 14:30 12/01/16 14:29 Risperidone (RisperDAL) 6 mg QHS ORAL 11/02/16 21:00 12/02/16 20:59 Sitagliptin Phosphate (Januvia) 50 mg DAILY ORAL 11/02/16 09:00 12/02/16 08:59 11/02/16 09:31 Temazepam (Restoril) 15 mg HSPRN PRN ORAL Insomnia 11/01/16 21:00 11/08/16 20:59 Tolterodine Tartrate (Detrol) 1 mg BID ORAL 11/02/16 09:00 12/02/16 08:59 11/02/16 09:32 GI: Plan Problems: (1) Altered mental status (2) Diarrhea (3) Dizziness Plan symptomatic treatment at this time zofran prn for nausea consider meclizine if patient has dizziness ADA diet DM mgmt bowel regime >> miralax + colace ppi fu labs outpatient GI procedures Discussed with Dr. Adler. Thank you for referring this patient, we will follow. Janeth Lee N.P. Nov 02, 2016 16:08
[2016-11-02] MEDS: Docusate 100mg cap ORAL SCH (17:35)
--- NOTE | 2016-11-02 18:47 | Physician Query ---
PLEASE COMPLETE DOCUMENT BEFORE SIGNING Sadiq Lim __Lelo Date: 11/02/2106 Composite Laminator/CDS Name: Brigida Wooten MD Composite Laminator / CDS Phone #[phone] Exercise your independent professional judgment when responding to query. Question asked do not imply a particular answer is desired/expected. Clinical Documentation States: "Altered Mental Status" documented in ED Provider Note & GI Consultation Note Please indicate the nature and chronicity of the condition below: [] Metabolic Encephalopathy [] Toxic Encephalopathy [] Toxic - Metabolic Encephalopathy [] Progressive Encephalopathy [] Encephalopathy, Other [] Other: [] Not Applicable Severity [] Acute [] Chronic [] Acute on Chronic [] Unable to determine Condition Present on Admission: [] Yes [] No []Clinically Undeterminable Please also document in your Progress Notes and/or Discharge Summary and indicate if the condition was present on admission. Rush Lind MD Date & Time MTDD
--- NOTE | 2016-11-02 19:24 | Pulmonology Progress Note ---
Assessment/Plan Problems: (1) Diarrhea (2) Dysuria (3) Psychosis (4) Diabetes (5) Mentally disabled Assessment/Plan improving c/o incontinence no more diarrhea Urology to see continue abx dc home probably in am BC positive, done in ER, most likely contaminated, no fever, no leukocytosis, Subjective ROS Limited/Unobtainable: No Constitutional: Reports: no symptoms HEENT: Repors: no symptoms Respiratory: Reports: no symptoms Allergies: Coded Allergies: No Known Allergies (Unverified , 08/09/12) Objective Last 24 Hour Vital Signs Date Time Temp Pulse Resp B/P Pulse Ox O2 Delivery O2 Flow Rate FiO2 11/02/16 17:35 149/102 11/02/16 17:34 149/102 11/02/16 16:00 97.3 91 20 149/102 96 Room Air 11/02/16 12:31 143/64 11/02/16 12:00 98.1 95 20 143/64 92 Room Air 11/02/16 12:00 98.1 95 20 143/64 92 Room Air 11/02/16 09:32 147/82 11/02/16 09:31 147/82 11/02/16 09:31 100 147/82 11/02/16 08:00 97.7 100 20 147/82 95 Room Air 11/02/16 06:35 98.6 11/02/16 04:00 99.0 100 20 152/88 93 Room Air 11/02/16 00:00 97.9 89 18 145/87 97 Room Air 11/01/16 19:56 97.7 99 20 155/59 95 Room Air 11/01/16 19:55 97.7 Intake and Output 11/01/16 11/02/16 19:00 07:00 Intake Total 420 ml 1210 ml Balance 420 ml 1210 ml Intake Oral 420 ml 1000 ml IV Total 210 ml # Voids 4 8 General Appearance: WD/WN HEENT: normocephalic, atraumatic Respiratory/Chest: chest wall non-tender, lungs clear Cardiovascular: normal peripheral pulses, normal rate Abdomen: normal bowel sounds, soft, non tender Genitourinary: normal external genitalia Neurologic/Psychiatric: revenue agent II-XII grossly normal Lymphatic: no neck adenopathy Microbiology Date/Time Source Procedure Growth Status 11/01/16 14:30 Blood Blood Culture - Preliminary Resulted 11/01/16 18:24 Urine,Clean Catch Urine Culture - Preliminary Resulted Laboratory Tests 11/02/16 06:25: Sodium Level 146H, Potassium Level 3.8, Chloride Level 107, Carbon Dioxide Level 28, Anion Gap 11, Blood Urea Nitrogen 17, Creatinine 0.9, Estimat Glomerular Filtration Rate > 60, Glucose Level 264#H, Calcium Level 9.5, Total Bilirubin 0.4, Aspartate Amino Transf (AST/SGOT) 13, Alanine Aminotransferase ( ALT/SGPT) 11, Alkaline Phosphatase 56, Total Protein 6.8, Albumin 3.6, Globulin 3.2, Albumin/Globulin Ratio 1.1, Triglycerides Level 119, Cholesterol Level 184 , LDL Cholesterol 125H, HDL Cholesterol 35, Cholesterol/HDL Ratio 5.3H Current Medications Medications (Trade) Dose Ordered Sig/Madhu Route PRN Reason Start Time Stop Time Status Last Admin Dose Admin Acetaminophen (Tylenol) 650 mg Q4H PRN ORAL fever 11/01/16 14:30 12/01/16 14:29 Al Hydroxide/Mg Hydroxide (Mylanta II) 30 ml Q6H PRN ORAL dyspepsia 11/01/16 14:30 12/01/16 14:29 Amlodipine Besylate (Norvasc) 5 mg DAILY ORAL 11/02/16 09:00 12/02/16 08:59 11/02/16 09:31 Aspirin (ASA) 162 mg DAILY ORAL 11/02/16 09:00 12/02/16 08:59 11/02/16 09:31 Atorvastatin Calcium (Lipitor) 20 mg BEDTIME ORAL 11/01/16 21:00 12/01/16 20:59 11/01/16 21:22 Baclofen (Lioresal) 10 mg THREE TIMES A DAY ORAL 11/02/16 09:00 12/02/16 08:59 11/02/16 17:34 Ceftriaxone Sodium/Dextrose (Rocephin/D5W) 55 ml @ 110 mls/hr Q24H IVPB 11/01/16 20:00 11/08/16 19:59 11/01/16 21:24 Clonazepam (KlonoPIN) 1 mg HSPRN PRN ORAL anxiety at bedtime 11/02/16 20:00 11/09/16 19:59 Dextrose (Dextrose 50%) STAT PRN IV Hypoglycemia 11/01/16 14:30 12/01/16 14:29 Divalproex Sodium (Depakote ER) 250 mg QHS ORAL 11/02/16 21:00 12/02/16 20:59 Divalproex Sodium (Depakote ER) 1,000 mg QHS ORAL 11/02/16 21:00 12/02/16 20:59 Docusate Sodium (Colace) 100 mg TID ORAL 11/02/16 18:00 12/02/16 17:59 11/02/16 17:35 Heparin Sodium (Porcine) 5000 units 5,000 units EVERY 12 HOURS SUBQ 11/01/16 21:00 12/01/16 20:59 11/01/16 20:59 Hydralazine HCl (Apresoline) 10 mg TID ORAL 11/01/16 18:00 12/01/16 17:59 11/02/16 17:35 Insulin Aspart (NovoLOG) BEFORE MEALS AND HS SUBQ 11/01/16 16:30 12/01/16 16:29 11/02/16 17:36 Insulin Aspart (NovoLOG) 9 units NOVOTIAC SUBQ 11/02/16 11:50 12/02/16 11:49 11/02/16 17:36 Insulin Detemir (Levemir) 20 units BEDTIME SUBQ 11/01/16 21:00 12/01/16 20:59 11/01/16 21:26 Insulin Detemir 30 units 30 units DAILY SUBQ 11/02/16 09:00 12/02/16 08:59 11/02/16 09:33 Lisinopril (Zestril) 10 mg BID ORAL 11/01/16 18:00 12/01/16 17:59 11/02/16 17:34 Lorazepam (Ativan) 2 mg Q6H PRN ORAL For Anxiety 11/01/16 22:00 11/08/16 21:59 Metformin HCl (Glucophage) 500 mg TIAC ORAL 11/02/16 11:30 12/02/16 11:29 11/02/16 17:34 Metronidazole (Flagyl) 100 ml @ 100 mls/hr Q8HR IVPB 11/01/16 22:00 11/08/16 21:59 11/02/16 13:56 Morphine Sulfate (Morphine Sulfate) 1 mg Q4H PRN IVP For Pain 11/01/16 14:30 11/08/16 14:29 Ondansetron HCl (Zofran) 4 mg Q6H PRN IVP Nausea & Vomiting 11/01/16 14:30 12/01/16 14:29 Pantoprazole (Protonix) 40 mg DAILY ORAL 11/01/16 21:00 12/01/16 20:59 11/02/16 09:31 Polyethylene Glycol (Miralax) 17 gm BEDTIME ORAL 11/02/16 21:00 12/02/16 20:59 Polyethylene Glycol (Miralax) 17 gm HSPRN PRN ORAL Constipation 11/01/16 14:30 12/01/16 14:29 Risperidone (RisperDAL) 6 mg QHS ORAL 11/02/16 21:00 12/02/16 20:59 Sitagliptin Phosphate (Januvia) 50 mg DAILY ORAL 11/02/16 09:00 12/02/16 08:59 11/02/16 09:31 Temazepam (Restoril) 15 mg HSPRN PRN ORAL Insomnia 11/01/16 21:00 11/08/16 20:59 Tolterodine Tartrate (Detrol) 1 mg BID ORAL 11/02/16 09:00 12/02/16 08:59 11/02/16 17:38 IRAIS GARCIA Nov 02, 2016 19:24
[2016-11-02 20:00] VITALS: BP 156/90
[2016-11-02] MEDS ORDERED: Depakote ER 500mg tab ORAL SCH ×2 (21:00)
[2016-11-02] MEDS: Levemir Flexpen SUBQ SCH (21:00)
[2016-11-02] MEDS ORDERED: Depakote ER 250mg tab ORAL SCH (21:00)
[2016-11-02] MEDS ORDERED: Miralax 17gm pkt ORAL SCH (21:00)
[2016-11-02] MEDS: Atorvastatin 20mg tab ORAL SCH (21:52)
[2016-11-02] MEDS: cefTRIAXone 1 GM in D5W 55 ML IVPB SCH (22:03)
[2016-11-03] VITALS: BP 162/86
[2016-11-03 04:00] VITALS: BP 168/82
[2016-11-03] MEDS: metroNIDAZOLE 500mg 100 ML IVPB SCH (05:25)
[2016-11-03] MEDS: metFORMIN 500mg tab ORAL SCH (06:33)
[2016-11-03] MEDS: NovoLOG Insulin Flexpen SUBQ SCH ×2 (06:34→06:35)
--- NOTE | 2016-11-03 07:55 | Pulmonology Progress Note ---
Assessment/Plan Assessment/Plan ASSESSMENT possible sepsis bacteremia probable UTI acute toxic metabolic encephalopathy ( likely 2 to sepsis) diarrhea-resolved dizziness -resolved DM OOC COPD HTN urgency psychosis bilateral cochlear implants PLAN OF CARE [facility] floor abx, ID follows blood cx 1/2 + GPR, fup with final results urine cx + mixed GPO discussed with ID , need final blood cx prior to dc to determine need for antibiotics O2 HHN prn to keep sat above 92% CXR with mild interstitial congestion BP management with CCB and Hydralazine and optimize as needed continue ASA and statin GI follows symptomatic treatment stool C dif not collected, diarrhea resolved a/emetic prn meclizine prn, dizziness resolved bowel regimen GI prophylaxis outpatient GI procedure as recommended by GI BP management, not controlled, increase NABOR dose, continue CCB, optimize further as needed BS management with SS of insulin, HgA1c -9.0 not at goal endo follows BS management with long acting Levemir and premeal short acting Novolog along with Januvia, metformin and SS of insulin as needed psych follows optimized psych medication regimen DVT, GI prophylaxis case discussed and evaluated by supervising physician Subjective Allergies: Coded Allergies: No Known Allergies (Unverified , 08/09/12) Subjective afebrile, no leucocytosis, sitter at the bedside for safety Objective Last 24 Hour Vital Signs Date Time Temp Pulse Resp B/P Pulse Ox O2 Delivery O2 Flow Rate FiO2 11/03/16 04:00 98.1 90 20 168/82 98 Room Air 11/03/16 00:00 98.2 95 20 162/86 96 Room Air 11/02/16 20:00 99.3 97 20 156/90 100 Room Air 11/02/16 17:35 149/102 11/02/16 17:34 149/102 11/02/16 16:00 97.3 91 20 149/102 96 Room Air 11/02/16 12:31 143/64 11/02/16 12:00 98.1 95 20 143/64 92 Room Air 11/02/16 12:00 98.1 95 20 143/64 92 Room Air 11/02/16 09:32 147/82 11/02/16 09:31 147/82 11/02/16 09:31 100 147/82 11/02/16 08:00 97.7 100 20 147/82 95 Room Air Intake and Output 11/02/16 11/03/16 19:00 07:00 Intake Total 440 ml 605 ml Balance 440 ml 605 ml Intake Oral 440 ml 450 ml IV Total 155 ml # Voids 8 2 General Appearance: no acute distress, other - morbidly obese female HEENT: normocephalic, atraumatic, anicteric, other - bialteral deaf , shouts as she talks Respiratory/Chest: chest wall non-tender, lungs clear Cardiovascular: normal rate, regular rhythm - distant heart sounds Abdomen: normal bowel sounds, soft, non tender - obese Neurologic/Psychiatric: alert, responsive, other - no gross focal Musculoskeletal: normal muscle bulk Microbiology Date/Time Source Procedure Growth Status 11/01/16 14:30 Blood Blood Culture - Preliminary Gram Positive Cocci Resulted 11/01/16 14:20 Blood Blood Culture - Preliminary NO GROWTH AFTER 24 HOURS Resulted 11/01/16 18:24 Urine,Clean Catch Urine Culture - Preliminary Resulted Current Medications Medications (Trade) Dose Ordered Sig/Madhu Route PRN Reason Start Time Stop Time Status Last Admin Dose Admin Acetaminophen (Tylenol) 650 mg Q4H PRN ORAL fever 11/01/16 14:30 12/01/16 14:29 Al Hydroxide/Mg Hydroxide (Mylanta II) 30 ml Q6H PRN ORAL dyspepsia 11/01/16 14:30 12/01/16 14:29 Amlodipine Besylate (Norvasc) 5 mg DAILY ORAL 11/02/16 09:00 12/02/16 08:59 11/02/16 09:31 Aspirin (ASA) 162 mg DAILY ORAL 11/02/16 09:00 12/02/16 08:59 11/02/16 09:31 Atorvastatin Calcium (Lipitor) 20 mg BEDTIME ORAL 11/01/16 21:00 12/01/16 20:59 11/02/16 21:52 Baclofen (Lioresal) 10 mg THREE TIMES A DAY ORAL 11/02/16 09:00 12/02/16 08:59 11/02/16 17:34 Ceftriaxone Sodium/Dextrose (Rocephin/D5W) 55 ml @ 110 mls/hr Q24H IVPB 11/01/16 20:00 11/08/16 19:59 11/02/16 22:03 Clonazepam (KlonoPIN) 1 mg HSPRN PRN ORAL anxiety at bedtime 11/02/16 20:00 11/09/16 19:59 Dextrose (Dextrose 50%) STAT PRN IV Hypoglycemia 11/01/16 14:30 12/01/16 14:29 Divalproex Sodium (Depakote ER) 250 mg QHS ORAL 11/02/16 21:00 12/02/16 20:59 11/02/16 21:51 Divalproex Sodium (Depakote ER) 1,000 mg QHS ORAL 11/02/16 21:00 12/02/16 20:59 11/02/16 21:52 Docusate Sodium (Colace) 100 mg TID ORAL 11/02/16 18:00 12/02/16 17:59 11/02/16 17:35 Heparin Sodium (Porcine) 5000 units 5,000 units EVERY 12 HOURS SUBQ 11/01/16 21:00 12/01/16 20:59 11/01/16 20:59 Hydralazine HCl (Apresoline) 10 mg TID ORAL 11/01/16 18:00 12/01/16 17:59 11/02/16 17:35 Insulin Aspart (NovoLOG) BEFORE MEALS AND HS SUBQ 11/01/16 16:30 12/01/16 16:29 11/03/16 06:35 Insulin Aspart (NovoLOG) 9 units NOVOTIAC SUBQ 11/02/16 11:50 12/02/16 11:49 11/03/16 06:34 Insulin Detemir (Levemir) 20 units BEDTIME SUBQ 11/01/16 21:00 12/01/16 20:59 11/02/16 21:00 Insulin Detemir 30 units 30 units DAILY SUBQ 11/02/16 09:00 12/02/16 08:59 11/02/16 09:33 Lisinopril (Zestril) 10 mg BID ORAL 11/01/16 18:00 12/01/16 17:59 11/02/16 17:34 Lorazepam (Ativan) 2 mg Q6H PRN ORAL For Anxiety 11/01/16 22:00 11/08/16 21:59 Metformin HCl (Glucophage) 500 mg TIAC ORAL 11/02/16 11:30 12/02/16 11:29 11/03/16 06:33 Metronidazole (Flagyl) 100 ml @ 100 mls/hr Q8HR IVPB 11/01/16 22:00 11/08/16 21:59 11/03/16 05:25 Morphine Sulfate (Morphine Sulfate) 1 mg Q4H PRN IVP For Pain 11/01/16 14:30 11/08/16 14:29 Ondansetron HCl (Zofran) 4 mg Q6H PRN IVP Nausea & Vomiting 11/01/16 14:30 12/01/16 14:29 Pantoprazole (Protonix) 40 mg DAILY ORAL 11/01/16 21:00 12/01/16 20:59 11/02/16 09:31 Polyethylene Glycol (Miralax) 17 gm BEDTIME ORAL 11/02/16 21:00 12/02/16 20:59 11/02/16 21:53 Polyethylene Glycol (Miralax) 17 gm HSPRN PRN ORAL Constipation 11/01/16 14:30 12/01/16 14:29 Risperidone (RisperDAL) 6 mg QHS ORAL 11/02/16 21:00 12/02/16 20:59 11/02/16 21:52 Sitagliptin Phosphate (Januvia) 50 mg DAILY ORAL 11/02/16 09:00 12/02/16 08:59 11/02/16 09:31 Temazepam (Restoril) 15 mg HSPRN PRN ORAL Insomnia 11/01/16 21:00 11/08/16 20:59 Tolterodine Tartrate (Detrol) 1 mg BID ORAL 11/02/16 09:00 12/02/16 08:59 11/02/16 17:38 Gene JudgeHailey melton NP Nov 03, 2016 07:55
[2016-11-03 08:12] VITALS: BP 160/83
[2016-11-03 08:48] LABS: BASOPHILS % (AUTO) 0.6 % (0.0-2.0); LYMPHOCYTES % (AUTO) 29.8 % (20.0-45.0); MEAN CORPUSCULAR HEMOGLOBIN 30.8 PG (27.0-31.0); MEAN CORPUSCULAR HGB CONC 33.6 G/DL (32.0-36.0); MEAN CORPUSCULAR VOLUME 92 FL (80-99); MEAN PLATELET VOLUME 9.4 FL (6.5-10.1); MONOCYTES % (AUTO) 8.2 % (1.0-10.0); NEUTROPHILS % (AUTO) 60.5 % (45.0-75.0); PLATELET COUNT 189 K/UL (150-450); RED CELL DISTRIBUTION WIDTH 11.8 % (11.6-14.8); WHITE BLOOD COUNT 8.7 K/UL (4.8-10.8)
[2016-11-03 08:58] LABS: ANION GAP 10 (5-15); CALCIUM 9.1 mg/dL (8.6-10.2); CARBON DIOXIDE 30 mEQ/L (20-30); CHLORIDE 106 mEQ/L (98-107); GLOMERULAR FILTRATION RATE > 60 mL/min (>60); HEMOLYSIS 2; POTASSIUM 4.1 mEQ/L (3.4-4.9); SODIUM 146 mEQ/L (135-145)
[2016-11-03] MEDS: Heparin 5000 units/ml inj SUBQ SCH (09:00)
[2016-11-03] MEDS: Docusate 100mg cap ORAL SCH (09:05)
[2016-11-03] MEDS: Tolterodine 2mg tab ORAL SCH (09:05)
[2016-11-03] MEDS: sitaGLIPtin 50mg tab ORAL SCH (09:05)
[2016-11-03] MEDS: Aspirin Baby 81mg ORAL SCH (09:05)
[2016-11-03] MEDS: HydrALAZINE 10mg Tab ORAL SCH (09:06)
[2016-11-03] MEDS: Lisinopril 10mg tab ORAL SCH (09:06)
[2016-11-03] MEDS ORDERED: Levemir Flexpen SUBQ SCH (10:00)
[2016-11-03] MEDS ORDERED: DIVALPROEX SOD500 M2 ORAL (10:27)
[2016-11-03] MEDS ORDERED: LEVEMIR FL100 UNIT/1 SUBQ ×2 (10:27→10:31)
[2016-11-03] MEDS ORDERED: NOVOLOG100 UNITS1 SUBQ (10:27)
[2016-11-03] MEDS ORDERED: DEPAKOTE ER250 MG ORAL (10:27)
[2016-11-03] MEDS ORDERED: RISPERDAL2 MG ORAL (10:27)
[2016-11-03 11:47] VITALS: BP 147/74
[2016-11-03] MEDS ORDERED: NovoLOG Insulin Flexpen SUBQ SCH (11:50)
[2016-11-03] MEDS ORDERED: NS 550ML IV ONE (12:39)
--- NOTE | 2016-11-03 14:34 | GI Progress Note ---
Assessment/Plan Problems: (1) Mentally disabled ICD Codes: F79 - Unspecified intellectual disabilities SNOMED: 03848143, 124299776, 658501773 (2) Diabetes ICD Codes: E11.9 - Type 2 diabetes mellitus without complications SNOMED: 86025057 (3) Dizziness ICD Codes: R42 - Dizziness and giddiness SNOMED: 993929595 (4) Diarrhea ICD Codes: R19.7 - Diarrhea, unspecified SNOMED: 05680309 Status: stable Status Narrative Discussed with Dr. Adler. Assessment/Plan symptomatic treatment at this time zofran prn for nausea consider meclizine if patient has dizziness ADA diet DM mgmt bowel regime >> miralax + colace ppi fu labs outpatient GI procedures Subjective Gastrointestinal/Abdominal: Reports: no symptoms Objective Last 24 Hour Vital Signs Date Time Temp Pulse Resp B/P Pulse Ox O2 Delivery O2 Flow Rate FiO2 11/03/16 11:47 98.1 89 20 147/74 93 Room Air 11/03/16 09:06 160/83 11/03/16 09:06 160/83 11/03/16 09:06 91 160/83 11/03/16 08:12 98.4 91 20 160/83 99 Room Air 11/03/16 04:00 98.1 90 20 168/82 98 Room Air 11/03/16 00:00 98.2 95 20 162/86 96 Room Air 11/02/16 20:00 99.3 97 20 156/90 100 Room Air 11/02/16 17:35 149/102 11/02/16 17:34 149/102 11/02/16 16:00 97.3 91 20 149/102 96 Room Air Intake and Output 11/02/16 11/03/16 19:00 07:00 Intake Total 440 ml 605 ml Balance 440 ml 605 ml Intake Oral 440 ml 450 ml IV Total 155 ml # Voids 8 2 Laboratory Tests Test 11/03/16 07:45 White Blood Count 8.7 K/UL (4.8-10.8) Red Blood Count 4.30 M/UL (4.20-5.40) Hemoglobin 13.2 G/DL (12.0-16.0) Hematocrit 39.4 % (37.0-47.0) Mean Corpuscular Volume 92 FL (80-99) Mean Corpuscular Hemoglobin 30.8 PG (27.0-31.0) Mean Corpuscular Hemoglobin Concent 33.6 G/DL (32.0-36.0) Red Cell Distribution Width 11.8 % (11.6-14.8) Platelet Count 189 K/UL (150-450) Mean Platelet Volume 9.4 FL (6.5-10.1) Neutrophils (%) (Auto) 60.5 % (45.0-75.0) Lymphocytes (%) (Auto) 29.8 % (20.0-45.0) Monocytes (%) (Auto) 8.2 % (1.0-10.0) Eosinophils (%) (Auto) 1.0 % (0.0-3.0) Basophils (%) (Auto) 0.6 % (0.0-2.0) Sodium Level 146 mEQ/L (135-145) H Potassium Level 4.1 mEQ/L (3.4-4.9) Chloride Level 106 mEQ/L (98-107) Carbon Dioxide Level 30 mEQ/L (20-30) Anion Gap 10 (5-15) Blood Urea Nitrogen 18 mg/dL (7-23) Creatinine 1.0 mg/dL (0.5-0.9) H Estimat Glomerular Filtration Rate > 60 mL/min (>60) Glucose Level 202 mg/dL (74-106) H Hemoglobin A1c 9.0 % (< 6.0) H Calcium Level 9.1 mg/dL (8.6-10.2) Height (Feet): 5 Height (Inches): 2.00 Weight (Pounds): 220 General Appearance: no apparent distress, alert, obese Cardiovascular: normal rate Respiratory/Chest: normal breath sounds, no respiratory distress Abdominal Exam: normal bowel sounds, non tender, soft Janeth Lee N.P. Nov 03, 2016 14:34
[2016-11-03] MEDS ORDERED: Lisinopril 20mg tab ORAL SCH (21:00)
--- NOTE | 2016-11-04 18:38 | General Progress Note ---
Assessment/Plan Status: stable Assessment/Plan schizoaffective depakote risperdal Subjective Date patient seen: Nov 03, 2016 Constitutional: Reports: malaise, weakness Neurologic/Psychiatric: Reports: anxiety, depressed, emotional problems Allergies: Coded Allergies: No Known Allergies (Unverified , 08/09/12) Objective Intake and Output 11/03/16 11/04/16 19:00 07:00 Intake Total 1200 ml Balance 1200 ml Intake Oral 1200 ml # Voids 4 Height (Feet): 5 Height (Inches): 2.00 Weight (Pounds): 220 General Appearance: no apparent distress, alert, obese Neurologic: alert, oriented x 3, responsive, depressed affect Rudy Quiroz M.D. Nov 04, 2016 18:38
--- NOTE | 2016-11-06 13:13 | Discharge Summary ---
Discharge Summary Hospital Course Date of Admission Nov 01, 2016 at 13:52 Date of Discharge Nov 03, 2016 at 12:40 Admitting Diagnosis WEAKNESS HPI Liliana Preciado is a 51 year old female who was admitted on Nov 01, 2016 at 13: 52 for Weakness Hospital Course dc summary #[id number] Discharge Medications New Medications: Divalproex Sodium (Divalproex Sodium Er) 500 Mg Tab.er.24h 1000 MG ORAL QHS, #60 TAB total dose 1250 mg po bid Divalproex Sodium* (Depakote Er*) 250 Mg Tab.er.24h 250 MG ORAL QHS, #60 TAB Insulin Aspart (Novolog Flexpen) 100 Unit/1 Ml Insuln.pen 12 UNITS SUBQ NOVOTIAC, #1 SYR Insulin Detemir (Levemir Flexpen) 100 Unit/1 Ml Insuln.pen 20 UNITS SUBQ BEDTIME, #1 SYR Insulin Detemir (Levemir Flexpen) 100 Unit/1 Ml Insuln.pen 36 UNITS SUBQ DAILY, #1 SYR Insulin regimen; levemir 36 units at am and 20 units at pm alng with 12 u Novolog ac meals Risperidone* (Risperdal*) 2 Mg Tablet 6 MG ORAL QHS, #30 TAB Continued Medications: Acetaminophen (Acetaminophen) 500 Mg Capsule 325 MG PO EVERY 8 HOURS PRN for Mild Pain/Temp > 100.5, CAP Amlodipine Besylate* (Amlodipine Besylate*) 5 Mg Tablet 5 MG ORAL DAILY, TAB Aspirin* (Aspirin*) 81 Mg Tab.chew 162 MG ORAL DAILY, #30 TAB Atorvastatin Calcium* (Atorvastatin Calcium*) 20 Mg Tablet 20 MG ORAL BEDTIME, TAB Baclofen* (Baclofen*) 10 Mg Tablet 10 MG ORAL THREE TIMES A DAY, TAB Clonazepam* (Klonopin*) 1 Mg Tablet 1 MG ORAL BEDTIME, #15 TAB 0 Refills Docusate Sodium* (Colace*) 100 Mg Capsule 100 MG ORAL DAILY, CAP Hydralazine Hcl* (Hydralazine Hcl*) 10 Mg Tablet 10 MG ORAL TID Lisinopril* (Zestril*) 10 Mg Tablet 10 MG ORAL BID, #10 TAB Lorazepam* (Ativan*) 2 Mg Tablet 2 MG ORAL EVERY 6 HOURS PRN for Agitation, TAB Metformin Hcl* (Glucophage*) 500 Mg Tablet 500 MG ORAL BID, #20 TAB Omeprazole (Omeprazole) 20 Mg Capsule.dr 20 MG ORAL DAILY, CAP Polyethylene Glycol 3350* (Miralax*) 17 Gm Powd.pack 17 GM ORAL DAILYPRN PRN for Constipation, #30 PACK Sitagliptin* (Januvia*) 25 Mg Tablet 50 MG ORAL DAILY, TAB Temazepam (Temazepam*) 15 Mg Capsule 15 MG ORAL BEDTIME, #30 CAP 0 Refills Tolterodine Tartrate (Tolterodine Tartrate ER) 2 Mg Cap.er.24h 2 MG PO, CAP Discontinued Medications: Insulin Detemir (Levemir Flexpen) 100 Unit/1 Ml Insuln.pen 20 SUBQ BEDTIME, #300 UNITS 0 Refills Discharge Condition Upon Discharge: stable Discharge Disposition Patient was discharged to [facility] Discharge Diagnoses: Gene ([facility])Hailey NP Nov 06, 2016 13:13
--- NOTE | 2016-11-07 05:02 | Discharge Summary 2 SIG ---
DATE OF ADMISSION: 11/01/2016 DATE OF DISCHARGE: 11/03/2016 CONSULTANTS: 1. Navid Bobby M.D., ID. 2. Yazan Adler M.D., GI specialist. 3. Rudy Quiroz M.D., psychiatrist. 4. Darshan Rodriguez M.D., auto service advisor. BRIEF HOSPITAL COURSE: This is a 51-year-old female with a past medical history significant for hypertension, COPD, diabetes, psychosis, hard of hearing with bilateral cochlear implants, and morbid obesity, brought for evaluation for abdominal cramps, dysuria, and diarrhea. Urinalysis revealed possible UTI with pyuria and +2 leukocyte esterase and no bacteria. The patient had no leukocytosis. Chest x-ray revealed no acute cardiopulmonary disease, shows equivocal mild interstitial congestion. The patient was started on empiric antibiotics. ID followed. Blood culture revealed 1/2 Staph epidermidis likely contamination. Urine culture revealed mixed gram-positive organism, status post antibiotic. No need for further antibiotic as per ID. Observe the patient off antibiotics. Supplemental oxygen. Pulmonary toilet provided as needed. Oxygen titrated to keep saturation above 92%. Chest x-ray revealed mild interstitial congestion. Blood pressure was managed with calcium channel fareed and hydralazine and was stable. Aspirin and statin continued. GI followed and recommended symptomatic treatment. Stool for C. difficile not collected since the patient did not provided and stated that diarrhea resolved. Antiemetic provided as needed. Meclizine was provided as needed. Dizziness resolved. Bowel regimen and GI prophylaxis instituted. GI recommended outpatient GI procedure. Symptoms could be possibly to enteritis and food poisoning. Blood pressure was not controlled, so antihypertensive medication optimized further down until blood pressure was controlled. Blood sugar was managed with sliding scale of insulin. Hemoglobin A1c was 9, not definitely not in goal. Hydrometer Calibrator followed. The blood sugar management was done with long-acting Levemir and premeal short-acting NovoLog along with Januvia, metformin, and sliding scale of insulin as needed. Psychiatrist seen and evaluated the patient and optimized psychiatric medication regimen. The patient was stable [facility], off antibiotics. Symptoms such as diarrhea, abdominal cramps, and dizziness resolved. Blood pressure controlled. Blood sugar improved. FINAL DIAGNOSES: Include, 1. Acute toxic metabolic encephalopathy (likely secondary to sepsis). 2. Possible sepsis. 3. Diarrhea with abdominal cramps and dizziness, resolved likely due to mild gastroenteritis. 4. Diabetes mellitus, out of control. 5. Hypertensive urgency, resolved. 6. Chronic obstructive pulmonary disease. 7. Psychosis. DISCHARGE MEDICATIONS: See medication reconciliation list. DISCHARGE INSTRUCTIONS: The patient discharged to [facility]. FOLLOWUP: Follow up with medical doctor. Rush Lind M.D. I have been assigned to dictate discharge summary on this account and I was not involved in the patient's management. Hailey Alvarezblythedale children's hospitalSofia N.PKeith DR: Shandra JOB#: [id number] CC:
== END 2016-11-03 12:40 | disposition home or self-care (01) | DRG 871 ==
LOC: EMR 12:50 → 4E 13:52 → EDBEDREQ 14:55 → 4E 15:21
DX: A41.9 Sepsis, unspecified organism (principal); G92 Toxic encephalopathy; N39.0 Urinary tract infection, site not specified; Z68.41 Body mass index [BMI] 40.0-44.9, adult; K52.9 Noninfective gastroenteritis and colitis, unspecified; E11.65 Type 2 diabetes mellitus with hyperglycemia; G40.909 Epilepsy, unspecified, not intractable, without status epilepticus; J44.9 Chronic obstructive pulmonary disease, unspecified; E66.01 Morbid (severe) obesity due to excess calories; F20.9 Schizophrenia, unspecified; F31.9 Bipolar disorder, unspecified; I16.0 Hypertensive urgency; F79 Unspecified intellectual disabilities; Z79.4 Long term (current) use of insulin; Z79.82 Long term (current) use of aspirin
CPT/HCPCS: 36415; 71010; 80048; 80053; 80061; 81003; 82550; 82962; 83036; 83605; 84484; 85025; 87040; 87081; 87086; 87181; 93005; J1815; S5561